=== PATIENT | male | born 1990 | race Hispanic/Latino ===

== ENCOUNTER 2020-04-26 16:25 | Emergency (ER) | payer OTHER, SELFPAY ==
[2020-04-26] MEDS ORDERED: Bupivacaine 0.5% 10 ML VIAL ONE (16:32)
[2020-04-26] MEDS ORDERED: HYDROcodone/Acetaminophen 10/325 mg Tablet ONE (16:51)
[2020-04-26] MEDS ORDERED: Boostrix 0.5 ML (Tdap) VIAL ONE (16:51)
[2020-04-26] MEDS ORDERED: Cephalexin 250 MG CAP ONE (16:51)
[2020-04-26] MEDS ORDERED: Lidocaine 1% PF 5 ML VIAL ONE (17:08)
--- NOTE | 2020-04-26 19:10 | RAD ---
LEFT THIRD FINGER THREE VIEWS: 04/26/20 There is amputation of the tip of the finger. This involves primarily the soft tissues. In addition, there is a fracture through the terminal tuft of the distal phalanx. There is minimal displacement. T he joints of the finger are unremarkable. IMPRESSION: Soft tissue amputation of the distal tip of the finger with fracture of the terminal tuft. POS: HOME
== END 2020-04-26 18:00 | disposition home or self-care (01) ==
LOC: BURERS 16:25
DX: S68.623A Partial traumatic transphalangeal amputation of left middle finger, initial encounter (principal); W23.0XXA Caught, crushed, jammed, or pinched between moving objects, initial encounter
CPT/HCPCS: 12001; 90471; 90715; J3490